=== PATIENT | female | born 1995 | race Caucasian/White ===

== ENCOUNTER 2017-01-05 09:54 | Emergency (ER) | payer OTHER ==
[~2017-01-05] VITALS: Ht 154.9 cm; Wt 85.0 kg
[~2017-01-05 09:54] MED LIST: AMOXICILLIN500 MG PO; BENADRYL25 MG OR; CIPROFLOXACN500 MG PO; DIFLUCAN100 MG PO; LORTAB 10-325 M1 TAB PO; MICONAZOLE24 TOP; NO MEDS; ZOFRAN ODT4 MG PO
[2017-01-05 10:16] LABS: URINE BILIRUBIN - DIPSTICK NEGATIVE (NEGATIVE); URINE BLOOD DIPSTICK LARGE (NEGATIVE); URINE CLARITY CLEAR; URINE COLOR YELLOW; URINE GLUCOSE - DIPSTICK NEGATIVE (NEGATIVE); URINE KETONE NEGATIVE (NEGATIVE); URINE NITRITE - DIPSTICK NEGATIVE (Negative); URINE PROTEIN - DIPSTICK TRACE mg/dL (NEG-TRACE)
[2017-01-05 10:42] LABS: URINE BACTERIA MODERATE hpf; URINE LEUK ESTERASE MODERATE (NEGATIVE); URINE SQUAMOUS EPITHELIAL CELL FEW EPI/hpf (0-FEW); URINE WBC 50-100 WBC/hpf (0-5)
[2017-01-05] MEDS ORDERED: PYRIDIUM200 MG PO (10:54)
[2017-01-05] MEDS ORDERED: KEFLEX500 MG PO (10:54)
[2017-01-05 11:09] VITALS: BP 138/89
== END 2017-01-05 11:09 | disposition home or self-care (01) | DRG 690 ==
LOC: ED 09:54
PROVIDERS: Emergency Medicine
DX: N39.0 Urinary tract infection, site not specified (principal); Z87.442 Personal history of urinary calculi; Z87.440 Personal history of urinary (tract) infections

== ENCOUNTER 2017-08-11 13:59 | Emergency (ER) | payer OTHER ==
[~2017-08-11] VITALS: Ht 154.9 cm; Wt 86.0 kg
[~2017-08-11 13:59] MED LIST changes: +KEFLEX500 MG PO; +PYRIDIUM200 MG PO
[2017-08-11 16:15] VITALS: BP 128/80
[2017-08-11] MEDS ORDERED: TORADOL PO (16:26)
[2017-08-11] MEDS ORDERED: AMOXICILLIN500 M2 PO (16:26)
== END 2017-08-11 16:15 | disposition home or self-care (01) | DRG 153 ==
LOC: ED 13:59
DX: J02.9 Acute pharyngitis, unspecified (principal); R50.9 Fever, unspecified

== ENCOUNTER 2021-12-26 15:15 | Emergency (ER) | payer OTHER ==
[~2021-12-26] VITALS: Ht 154.9 cm; Wt 86.3 kg
[~2021-12-26 15:15] MED LIST changes: +AMOXICILLIN500 M2 PO; +TORADOL PO
[2021-12-26 15:21] VITALS: BP 131/83
[2021-12-26 15:31] VITALS: BP 109/69
[2021-12-26 16:01] VITALS: BP 111/67
[2021-12-26 16:31] VITALS: BP 104/68
[2021-12-26 17:01] VITALS: BP 108/69
[2021-12-26 17:15] VITALS: BP 108/69
[2021-12-26] MEDS ORDERED: VALACYCLOVIR HCL1 GM PO (17:29)
[2021-12-26] MEDS ORDERED: DOXYCYCLINE100 MG PO (17:29)
== END 2021-12-26 17:46 | disposition home or self-care (01) | DRG 156 ==
LOC: ED 15:15
DX: B00.1 Herpesviral vesicular dermatitis (principal); F41.9 Anxiety disorder, unspecified